=== PATIENT | female | born 1990 | race Caucasian/White ===

== ENCOUNTER 2016-08-22 14:52 | Emergency (ER) | payer OTHER ==
[~2016-08-22] VITALS: Ht 157.5 cm; Wt 81.6 kg
[~2016-08-22 14:52] MED LIST: IBUPROFEN800 M1 PO; SLOW RELEASE47.5 MG PO; TRANDATE100 MG PO
[2016-08-22 15:23] LABS: ABSOLUTE BASOPHIL COUNT 0.1 /CUMM (0.0-0.2); ABSOLUTE EOSINOPHIL COUNT 0.4 /CUMM (0.0-0.7); ABSOLUTE GRANULOCYTE CT 8.3 /CUMM (1.4-6.5); ABSOLUTE LYMPH COUNT 2.7 /CUMM (1.2-3.4); ABSOLUTE MONOCYTE COUNT 0.5 /CUMM (0.10-0.60); BASOPHIL % 0.5 % (0.0-2.0); EOSINOPHIL % 3.6 % (0-5); GRANULOCYTE % 68.8 % (42.2-75.2); HEMATOCRIT 43.2 % (37-47); MEAN CORPUSCULAR HGB 29.5 PG (27.0-31.0); MEAN CORPUSCULAR HGB CONC 33.6 G/DL (33.0-37.0); MEAN CORPUSCULAR VOLUME 87.9 FL (81.0-99.0); MEAN PLATELET VOLUME 7.7 FL (7.4-10.4); PLATELET COUNT 368 /CUMM (130-400); RBC DISTRIBUTION WIDTH 12.9 % (11.5-14.5); RED BLOOD CELL CT 4.91 /CUMM (4.20-5.40); WHITE BLOOD CELL COUNT 12.1 /CUMM (4.8-10.8)
[2016-08-22] MEDS ORDERED: ONDANSETRON HCL4 MG PO (15:39)
[2016-08-22] MEDS ORDERED: MIRENA1 EACH (15:39)
[2016-08-22] MEDS ORDERED: TUMS200 MG PO (15:39)
--- NOTE | 2016-08-22 16:06 | ED GI/GU/ABDOMINAL COMPLAINT ---
History of Present Illness General Chief Complaint: Abdominal Pain/Flank Pain Stated Complaint: ABDOMINAL PAIN Source: patient, family, old records Exam Limitations: no limitations Vital Signs & Intake/Output Vital Signs & Intake/Output Vital Signs Date Time Temp Pulse Resp B/P Pulse O2 O2 Flow FiO2 Ox Delivery Rate 08/22 1652 97.8 78 18 128/79 97 Room Air 08/22 1501 97.7 87 18 132/87 95 Room Air Allergies Coded Allergies: No Known Drug Allergies (12/30/15) Reconcile Medications Calcium Carbonate (TUMS) (Unknown Strength) TAB.CHEW (Unknown Dose) PO EOD HEARTBURN (Reported) Dicyclomine Hydrochloride (Bentyl) 10 MG CAPSULE 1 CAP PO Q6HR PRN PAIN Levonorgestrel (Mirena) 20 MCG/24 HOUR (5 YEARS) IUD CONTROL (Reported) Ondansetron HCl 4 MG TABLET 1 TAB PO Q6P PRN N/V (Reported) Promethazine HCl 25 MG TABLET 1 TAB PO Q6P PRN NAUSEA Triage Note: 25 Y/O FEMALE C/O 1 MONTH HISTORY DIFFUSE ABDOMINAL PAIN AND N/V/D. STATES "IT ALTERNATES BETWEEN CONSTIPATION AND DIARRHEA". AT PRESENT, DENIES ANY PAIN STATING "I HAD PAIN JUST BEFORE I GOT HERE". DOES NOT GET MENSES DUE TO CONTROL. DENIES FEVERS. Triage Nurses Notes Reviewed? yes ? n Is pt currently ? No Onset: Gradual Duration: week(s):, intermittent, waxing and waning Timing: recent history Quality/Severity: aching, cramping Severity Numbers: 5 Location: epigastric, left upper quadrant Radiation: no radiation Activities at Onset: none Prior Abdominal Problems: similar symptoms No Modifying Factors: none Associated Symptoms: nausea/vomiting, constipation, diarrhea HPI: 25-year-old female who presents to emergency room with family complaining of a several week history of intermittent epigastric abdominal pain that is nonradiating associated with nausea vomiting and intermittent bouts of diarrhea and constipation. There is no radiation of the pain she describes it as cramping and aching. The patient has been taking Zofran without improvement in her nausea. She just returned from a cruise in the [place] yesterday, she states she's had a history of similar episodes several years ago for which she was treated with H pylori however her family states that she has had "stomach problems all of her life" she denies any black or bloody stools no sick contacts no hematemesis. She denies chest pain shortness of breath no urinary symptoms (GEORGIE ESQUIVEL) Past History Travel History Traveled to [place] past 21 day No Medical History Any Pertinent Medical History? see below for history Neurological: NONE EENT: NONE Cardiovascular: hypertension (GHTN) Respiratory: NONE Gastrointestinal: NONE Hepatic: NONE Renal: NONE Musculoskeletal: NONE Psychiatric: NONE Endocrine: GDM Blood Disorders: NONE Cancer(s): NONE CORRECTION WARDEN/Reproductive: miscarriage Surgical History Surgical History: N Psychosocial History What is your primary language Faroese Tobacco Use: Never used Family History Hx Contributory? No (GEORGIE ESQUIVEL) Review of Systems Review of Systems Constitutional: Reports: see HPI. All Other Systems: Reviewed and Negative Comments Review of systems: See HPI, All other systems negative. Constitutional, no chills no fever, no malaise HEENT: No visual changes no sore throat no congestion, Cardiovascular: No chest pain , no palpitation , Skin, no jaundice no rashes, no change in skin Respiratory: No dyspnea no cough GI: see hpi : No dysuria Muscle skeletal: No joint pain, no back pain, no neck pain, Neurologic: No numbness no headache Psych: No stress Heme/endocrine: No bruising no bleeding Immunology: No lymphadenopathy (GEORGIE ESQUIVEL) Physical Exam Physical Exam General Appearance: well developed/nourished, no apparent distress, alert, awake Gastrointestinal: normal bowel sounds, soft, non-tender, no organomegaly Comments: Well-developed well-nourished person in no acute distress HEENT: Normal EENT exam; PERRL, EOMI, HEAD is atraumatic. moist mucous membranes. Neck: Supple, normal range of motion Back: Nontender, no CVA tenderness. Full range of motion Cardiovascular: Regular rate and rhythms no murmurs rubs Respiratory: Chest nontender.There were no bony deformities, no asymmetry. No respiratory distress. Patient speaking in full complete sentences. Breath sounds clear to auscultation bilaterally: NO W/R/R Abdomen: Soft, nontender nondistended, no appreciable organomegaly. Normal bowel sounds. No rebound/guarding there is no right upper quadrant tenderness negative Forte sign Extremity: No edema, full range of motion of extremities Neuro: Alert oriented x3, motor sensory normal, There were no obvious focal neurologic abnormalities. Skin: No appreciable rash on exposed skin, skin is warm and dry. Psych: Mood and affect is normal, memory and judgment is normal. Core Measures ACS in differential dx? No Severe Sepsis Present: No Septic Shock Present: No (ALIZE VANN,GEORGIE) Progress Differential Diagnosis: appendicitis, biliary colic, colon cancer, cholecystitis , diverticulitis, gastritis, hepatitis, hernia, inflamm bowel dis, pancreatitis, peptic ulcer, ibs Plan of Care: Orders Procedure Date/time Status URINE 08/22 150 Complete URINALYSIS 08/22 150 Complete COMPREHENSIVE METABOLIC PANEL 08/22 150 Complete CBC WITHOUT DIFFERENTIAL 08/22 150 Complete Laboratory Tests 08/22/16 1610: Urinalysis LIGHT H, Urine Color YEL, Urine Clarity HAZY H, Urine pH 8.5 H, Ur Specific [place] 1.015, Urine Protein 100 H, Urine Ketones TRACE H, Urine Nitrite NEG, Urine Bilirubin NEG, Urine Urobilinogen 0.2, Ur Leukocyte Esterase TRACE H, Ur Microscopic SEDIMENT EXAMINED, Urine RBC RARE, Urine WBC 3-5 H, Ur Epithelial Cells MANY H, Urine Hemoglobin NEG, Urine Glucose NEG, Urine Test NEGATIVE 08/22/16 1513: Anion Gap 10, Estimated GFR > 60, BUN/Creatinine Ratio 11.4, Glucose 95, Calcium 9.5, Total Bilirubin 0.4, AST 15, ALT 26, Alkaline Phosphatase 76, Total Protein 7.5, Albumin 4.5, Globulin 3.0, Albumin/Globulin Ratio 1.5, CBC w Diff NO MAN DIFF REQ, RBC 4.91, MCV 87.9, MCH 29.5, RDW 12.9, MPV 7.7, Gran % 68.8, Lymphocytes % 22.6, Monocytes % 4.5, Eosinophils % 3.6, Basophils % 0.5, Absolute Granulocytes 8.3 H, Absolute Lymphocytes 2.7, Absolute Monocytes 0.5, Absolute Eosinophils 0.4, Absolute Basophils 0.1, PUBS MCHC 33.6 The patient clinically appears well here she's had no episodes of nausea vomiting in the department I discussed with her apparently all of her lab results given the duration of her symptoms have been for the past several weeks intermittent in nature I discussed with her that I believe the patient would benefit from GI eval. Discussed with her that I do not believe the patient warrants were requires any imaging at this time given there is no right upper quadrant tenderness she is afebrile nontoxic appearing. Both the patient and her family are in agreement and feel comfortable with this plan prescription for Bentyl and Phenergan provided advised bland diet clear liquids if symptoms persist or worsen to return immediately which they're in agreement with (GEORGIE ESQUIVEL) Initial ED EKG: none (GEORGIE ESQUIVEL) Departure Departure Time of Disposition: 1641 Disposition: HOME OR SELF CARE Condition: Stable Clinical Impression Primary Impression: Abdominal pain Referrals: YE GUARDADO,ANGELA Ulrich UNKNOWN (PCP/Family) Additional Instructions: [place] diet clear liquids advance as tolerated. Phenergan if needed for nausea and Bentyl as directed. Continue taking Nexium follow-up with gastric urologist Dr. sorensen. Return anytime sooner with any concerns. These prescriptions were sent to your pharmacy Departure Forms: Customer Survey General Discharge Information Prescriptions: Current Visit Scripts Dicyclomine Hydrochloride (Bentyl) 1 CAP PO Q6HR PRN PAIN #15 CAP Promethazine HCl 1 TAB PO Q6P PRN NAUSEA #12 TAB (GEORGIE ESQUIVEL) PA/WRAPPER STEMMER OPERATOR Co-Sign Statement Statement: ED Attending supervision documentation- [] I saw and evaluated the patient. I have also reviewed all the pertinent lab results and diagnostic results. I agree with the findings and the plan of care as documented in the PA's/WRAPPER STEMMER OPERATOR's documentation. [X] I have reviewed the ED Record and agree with the PA's/WRAPPER STEMMER OPERATOR's documentation. [] Additions or exceptions (if any) to the PAs/WRAPPER STEMMER OPERATOR's note and plan are summarized below: [] (VISHNU KAHN DO
[2016-08-22] MEDS ORDERED: BENTYL10 M1 PO (16:46)
[2016-08-22] MEDS ORDERED: PROMETHAZINE HC25 M3 PO (16:46)
[2016-08-22 16:52] VITALS: BP 128/79
== END 2016-08-22 16:53 ==
LOC: ERH 14:52
PROVIDERS: Emergency Medicine
DX: R10.13 Epigastric pain (principal)
CPT/HCPCS: 81001; 81025

== ENCOUNTER 2018-01-01 13:59 | Inpatient (IN) | payer OTHER ==
[~2018-01-01] VITALS: Ht 157.5 cm; Wt 90.3 kg
[~2018-01-01 13:59] MED LIST changes: +BENTYL10 M1 PO; +MIRENA1 EACH; +ONDANSETRON HCL4 MG PO; +PROMETHAZINE HC25 M3 PO; +TUMS200 MG PO
[2018-01-01 14:55] LABS: ABSOLUTE BASOPHIL COUNT 0 /CUMM (0.0-0.2); ABSOLUTE EOSINOPHIL COUNT 0.2 /CUMM (0.0-0.7); ABSOLUTE GRANULOCYTE CT 10.8 /CUMM (1.4-6.5); ABSOLUTE LYMPH COUNT 2.1 /CUMM (1.2-3.4); ABSOLUTE MONOCYTE COUNT 0.6 /CUMM (0.10-0.60); BASOPHIL % 0.2 % (0.0-2.0); EOSINOPHIL % 1.4 % (0-5); GRANULOCYTE % 78.8 % (42.2-75.2); HEMATOCRIT 35.7 % (37-47); MEAN CORPUSCULAR HGB 30.4 PG (27.0-31.0); MEAN CORPUSCULAR HGB CONC 34.8 G/DL (33.0-37.0); MEAN CORPUSCULAR VOLUME 87.2 FL (81.0-99.0); MEAN PLATELET VOLUME 8.8 FL (7.4-10.4); PLATELET COUNT 237 /CUMM (130-400); RBC DISTRIBUTION WIDTH 13.2 % (11.5-14.5); WHITE BLOOD CELL COUNT 13.8 /CUMM (4.8-10.8)
--- NOTE | 2018-01-01 19:01 | History & Physical ---
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 spouse Primary Language: Congolese Smoking Status: Never Smoked Living Will? unknown
--- NOTE | 2018-01-02 04:18 | Labor & Delivery Summary ---
Delivery Summary Vaginal Delivery: Vaginal: vertex Placenta: Placenta: spontanteous, normal, 3 vessel Anesthesia: block (epidural) Apgars - 1 Min: 9 Apgars - 5 Min: 9 Additional Comments: Multipara was delivered at term, spontaneously, of a single viable female , 9,9, from the SYED position over an intact perineum without laceration. AF stained with thick meconium, noted at [facility] 2 hours prior to delivery. Peds present at delivery for meconium, and nose and mouth suctioned on the perineum, at on the mother's abdomen, and in the warmer by Peds directly after clamping the cord. Cord trivascular, placenta delivered spontaneously and intact. Perineum, vaginal aponte, cervix, rectal sphincter and mucosa intact. Fundus firm and nontender. With a working epidural in place, patient tolerated the delivery well.
[2018-01-02 06:39] VITALS: BP 144/80
[2018-01-02] MEDS ORDERED: IBUPROFEN800 M1 PO (17:08)
--- NOTE | 2018-01-02 17:16 | PN- Post Delivery/GYN ---
Subjective Subjective: feeling well asking to go home tomorrow am. Review of Systems Constitutional: Denies: chills, fever. EENTM: Denies: blurred vision, double vision, visual changes. Cardiovascular: Denies: chest pain. Respiratory: Denies: cough, short of breath. Gastrointestinal: Denies: diarrhea, nausea, vomiting. Neurological/Psychological: Denies: anxiety, depressed. Objective Last 24 Hrs of Vital Signs/I&O vss Vital Signs Date Time Temp Pulse Resp B/P B/P Pulse O2 O2 Flow FiO2 Mean Ox Delivery Rate 01/02 0639 144/80 Intake & Output 01/02 1600 01/02 0800 01/02 0000 Intake Total Output Total Balance Patient 199 lb Weight Physical Exam General Appearance Alert, Oriented X3, Cooperative, No Acute Distress Cardiovascular Regular Rate Lungs Clear to Auscultation Abdomen Soft Assessment/Plan Assessment/Plan ppd #0 vss afebrils plan to d/c home in am.
[2018-01-03 08:33] LABS: ABSOLUTE BASOPHIL COUNT 0.1 /CUMM (0.0-0.2); ABSOLUTE EOSINOPHIL COUNT 0.5 /CUMM (0.0-0.7); ABSOLUTE GRANULOCYTE CT 6.5 /CUMM (1.4-6.5); ABSOLUTE MONOCYTE COUNT 0.4 /CUMM (0.10-0.60); BASOPHIL % 0.5 % (0.0-2.0); GRANULOCYTE % 61.6 % (42.2-75.2); HEMATOCRIT 30.8 % (37-47); MEAN CORPUSCULAR HGB 30.1 PG (27.0-31.0); MEAN CORPUSCULAR HGB CONC 34.4 G/DL (33.0-37.0); MEAN CORPUSCULAR VOLUME 87.6 FL (81.0-99.0); MEAN PLATELET VOLUME 8.1 FL (7.4-10.4); PLATELET COUNT 189 /CUMM (130-400); RBC DISTRIBUTION WIDTH 13.3 % (11.5-14.5); RED BLOOD CELL CT 3.52 /CUMM (4.20-5.40); WHITE BLOOD CELL COUNT 10.5 /CUMM (4.8-10.8)
--- NOTE | 2018-01-03 09:50 | PN- OBGYN ---
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 1. encourage ambulation and breastfeeidng 2. isolated elvated systolic BP today, pt asymptomatic and aware of BP, precautions reviewed with pt, she undesrtand, pt has f/u appt at [facility] 01/05/2018 3. RT PP care 4. will d/c home, f/u in office, discahrge instructions given, she understand.
== END 2018-01-03 11:20 | DRG 775 ==
LOC: CBCO 13:59 → GNO 15:38
PROVIDERS: Obstetrics & Gynecology
PROC: 10E0XZZ Delivery of Products of Conception, External Approach (ICD-10-PCS; principal; 2018-01-02)
DX: O77.0 Labor and delivery complicated by meconium in amniotic fluid (principal); Z3A.40 40 weeks gestation of pregnancy; Z37.0 Single live birth
CPT/HCPCS: GNOP; GNOS; 81003; J0290; J2405; J3490; J7120